=== PATIENT | male | born 1955 ===

== ENCOUNTER → 2020-09-28 | Outpatient (REF) | payer OTHER ==
[2020-09-28 19:01] LABS: BASO % 0.9 % (0.0-1.0); EOS # 0.1 10^3/uL (0.0-0.5); EOS % 3.1 % (0.0-3.0); HEMATOCRIT 42.6 % (42.0-52.0); HEMOGLOBIN 14.1 g/dl (13.5-17.5); LYMPH # 1.7 10^3/uL (1.5-5.0); LYMPH % 37.2 % (24.0-44.0); MEAN CORPUSCULAR HEMOGLOBIN 32.2 pg (27.0-33.0); MEAN CORPUSCULAR HGB CONC 33.1 g/dl (32.0-36.5); MEAN CORPUSCULAR VOLUME 97.3 fl (80.0-96.0); MONO # 0.5 10^3/uL (0.0-0.8); MONO % 9.9 % (2.0-8.0); NEUTROPHILS # 2.2 10^3/uL (1.5-8.5); NEUTROPHILS % 48.7 % (36.0-66.0); PLATELET COUNT, AUTOMATED 265 10^3/uL (150-450); RED BLOOD COUNT 4.38 10^6/uL (4.30-6.10); WHITE BLOOD COUNT 4.5 10^3/uL (4.0-10.0)
[2020-09-28 19:40] LABS: BLOOD UREA NITROGEN 16 MG/DL (7-18); CREATININE FOR GFR 0.74 MG/DL (0.70-1.30); GLUCOSE, FASTING 94 MG/DL (70-100)
[2020-09-28 19:41] LABS: ALBUMIN 3.6 GM/DL (3.2-5.2); ALT/SGPT 36 U/L (12-78); BILIRUBIN,TOTAL 0.5 MG/DL (0.2-1.0); CALCIUM LEVEL 8.9 MG/DL (8.8-10.2); CARBON DIOXIDE LEVEL 27 MEQ/L (21-32); CHLORIDE LEVEL 106 MEQ/L (98-107); CHOLESTEROL LEVEL 231 MG/DL (<200); CHOLESTEROL RISK RATIO 3.347 (<5); GLOMERULAR FILTRATION RATE > 60.0 (>49); HDL CHOLESTEROL 69 MG/DL (>40); LDL CHOLESTEROL 151 MG/DL (<100); NON-HDL-C 162 MG/DL; POTASSIUM SERUM 4.9 MEQ/L (3.5-5.1); SODIUM LEVEL 139 MEQ/L (136-145); TOTAL PROTEIN 6.8 GM/DL (6.4-8.2); TRIGLYCERIDES LEVEL 57 MG/DL (<150)
[2020-09-29 10:38] LABS: TOTAL 25(OH) VITAMIN D 33.1 NG/ML (30.0-100.0)
[2020-09-30 23:07] LABS: PSA TOTAL 2.6 ng/mL (0.0-4.0)
== END ==
LOC: M LAB REF 16:32
PROVIDERS: ATTEND Pediatrics
DX: Z12.5 Encounter for screening for malignant neoplasm of prostate (principal); R00.2 Palpitations; Z76.89 Persons encountering health services in other specified circumstances